=== PATIENT | male | born 2000 | race Caucasian/White ===

== ENCOUNTER 2021-05-04 19:06 | Emergency (ER) | payer BC ==
[2021-05-04] MEDS ORDERED: Ondansetron 4 MG/2 ML SDV IVPUSH ONE (20:41)
[2021-05-04] MEDS ORDERED: Sodium Chloride 0.9% 1,000 ML IV STA (20:41)
[2021-05-04] MEDS ORDERED: Sodium Chloride 0.9% 10 ML Syringe FLUSH PRN (20:41)
--- NOTE | 2021-05-04 21:18 | EDM.PDOC ---
<Alyson Pinto - Last Filed: 05/04/21 23:00> ED HPI GENERAL MEDICAL PROBLEM - General Chief Complaint: Abdominal Pain Stated Complaint: ABD PAIN Time Seen by Provider: 05/04/21 20:12 Source of Information: Reports: Patient, RN Notes Reviewed History Limitations: Reports: No Limitations - History of Present Illness INITIAL COMMENTS - FREE TEXT/NARRATIVE: Patient is a 21-year-old male presenting to the emergency department with complaints of right lower quadrant abdominal pain. Reports symptoms began this morning and have been consistent throughout the day. Pain is worse if he tries to stand upright and move around. He has felt nauseous but has had no vomiting. Denies diarrhea. Last bowel movement was yesterday. Denies any blood in his stools. He has no chronic medical conditions and has had no previous abdominal surgeries. Right Abdomen Pain Score (Numeric/FACES): 5 - Related Data Allergies Allergy/AdvReac Type Severity Reaction Status Date / Time No Known Allergies Allergy Verified 05/04/21 20:13 Home Meds: Home Meds . [No Known Home Meds] 05/04/21 [History] Past Medical History HEENT History: Reports: Otitis Media Respiratory History: Reports: Asthma, Croup - Infectious Disease History Infectious Disease History: Reports: None Social & Family History - Tobacco Use Tobacco Use Status *Q: Never Tobacco User - Caffeine Use Caffeine Use: Reports: Coffee, Energy Drinks, Soda, Tea - Recreational Drug Use Recreational Drug Use: No ED ROS GENERAL - Review of Systems Review Of Systems: See Below Constitutional: Reports: No Symptoms. Denies: Fever, Chills HEENT: Reports: No Symptoms Respiratory: Reports: No Symptoms Cardiovascular: Reports: No Symptoms Endocrine: Reports: No Symptoms GI/Abdominal: Reports: Abdominal Pain, Nausea. Denies: Diarrhea, Vomiting : Reports: No Symptoms Musculoskeletal: Reports: No Symptoms Skin: Reports: No Symptoms Neurological: Reports: No Symptoms Psychiatric: Reports: No Symptoms Hematologic/Lymphatic: Reports: No Symptoms Immunologic: Reports: No Symptoms ED EXAM, GI/ABD - Physical Exam Exam: See Below Exam Limited By: No Limitations General Appearance: Alert, WD/WN, No Apparent Distress Respiratory/Chest: No Respiratory Distress, Lungs Clear, Normal Breath Sounds, No Accessory Muscle Use, Chest Non-Tender Cardiovascular: Normal Peripheral Pulses, Regular Rate, Rhythm, No Edema, No Gallop, No JVD, No Murmur, No Rub GI/Abdominal Exam: Normal Bowel Sounds, Soft, No Organomegaly, No Distention, No Abnormal Bruit, No Mass, Pelvis Stable, Tender (Localized to right lower quadrant.). No: Guarding, Rigid, Rebound Neurological: Alert, Oriented, CN II-XII Intact, Normal Cognition, Normal Gait, Normal Reflexes, No Motor/Sensory Deficits Psychiatric: Normal Affect, Normal Mood Skin Exam: Warm, Dry, Intact, Normal Color, No Rash Course - Re-Assessments/Exams Free Text/Narrative Re-Assessment/Exam: Patient is a 21-year-old male presenting to the emergency department with complaints of right lower quadrant abdominal pain since this morning. Reports associated nausea but has had no vomiting. Denies diarrhea. Last bowel movement was yesterday. On exam, he does have localized right lower quadrant abdominal tenderness. Pain is worse with walking and he reports walking hunched over improves pain. Have ordered blood work, CT scan of the abdomen pelvis with contrast, and Covid testing. I will give IV fluids of normal saline 100 mils per hour and Zofran 4 mg IV. 05/04/21 22:22 Hematology is unremarkable. WBCs and CRP are normal. Urinalysis negative for infection. Results of CT scan are pending. Departure - Departure Disposition: Home, Self-Care 01 Clinical Impression: Abdominal pain - Discharge Information Referrals: PCP,None [Primary Care Provider] - Forms: ED Department Discharge Additional Instructions: Purchase [id number] MiraLAX and take this daily until you achieve regular bowel movements. If symptoms fail to improve over the next few days or you experience any new or worsening symptoms of concern, these follow-up in the clinic or return to ER as needed. <Sulaiman Butt - Last Filed: 05/04/21 23:41> Course - Vital Signs Last Recorded V/S: Last Vital Signs Temp 37.1 C 05/04/21 20:10 Pulse 81 05/04/21 20:10 Resp 20 05/04/21 20:10 BP 127/78 05/04/21 20:10 Pulse Ox 98 05/04/21 20:10 - Orders/Labs/Meds Orders: Active Orders 24 hr Category Date Time Status Peripheral IV Care [RC] . DIRECTED Care 05/04/21 20:41 Active Abdomen Pelvis w Cont [CT] Stat Exams 05/04/21 20:41 Taken Sodium Chloride 0.9% [Normal Saline] 1,000 ml Med 05/04/21 20:41 Active IV NOW Sodium Chloride 0.9% [Saline Flush] Med 05/04/21 20:41 Active 10 ml FLUSH ASDIRECTED PRN Peripheral IV Insertion Adult [OM.PC] Stat Oth 05/04/21 20:41 Ordered Medication Orders Sodium Chloride (Normal Saline) 1,000 mls @ 150 mls/hr IV NOW STA Stop: 05/05/21 03:20 Last Admin: 05/04/21 20:54 Dose: 150 mls/hr Documented by: KITA Sodium Chloride (Sodium Chloride 0.9% 10 Ml Syringe) 10 ml FLUSH ASDIRECTED PRN PRN Reason: Keep Vein Open Last Admin: 05/04/21 20:54 Dose: 10 ml Documented by: KITA Labs: Laboratory Tests 05/04/21 05/04/21 05/04/21 Range/Units 20:50 20:50 20:51 WBC 5.74 (4.23-9.07) K/mm3 RBC 5.24 (4.63-6.08) M/mm3 Hgb 16.0 (13.7-17.5) gm/dl Hct 46.5 (40.1-51.0) % MCV 88.7 (79.0-92.2) fl MCH 30.5 (25.7-32.2) pg MCHC 34.4 (32.2-35.5) g/dl RDW Std Deviation 42.6 (35.1-43.9) fL Plt Count 270 (163-337) K/mm3 MPV 9.5 (9.4-12.3) fl Neut % (Auto) 68.2 H (34.0-67.9) % Lymph % (Auto) 23.9 (21.8-53.1) % [place] % (Auto) 6.8 (5.3-12.2) % Eos % (Auto) 0.7 L (0.8-7.0) Baso % (Auto) 0.2 (0.1-1.2) % Neut # (Auto) 3.92 (1.78-5.38) K/mm3 Lymph # (Auto) 1.37 (1.32-3.57) K/mm3 [place] # (Auto) 0.39 (0.30-0.82) K/mm3 Eos # (Auto) 0.04 (0.04-0.54) K/mm3 Baso # (Auto) 0.01 (0.01-0.08) K/mm3 Sodium 137 (136-145) mEq/L Potassium 3.9 (3.5-5.1) mEq/L Chloride 103 (98-107) mEq/L Carbon Dioxide 27 (21-32) mEq/L Anion Gap 10.9 (5-15) BUN 14 (7-18) mg/dL Creatinine 1.0 (0.7-1.3) mg/dL Est Cr Clr Drug Dosing 121.67 mL/min Estimated GFR (MDRD) > 60 (>60) mL/min BUN/Creatinine Ratio 14.0 (14-18) Glucose 95 (70-99) mg/dL Calcium 9.2 (8.5-10.1) mg/dL Total Bilirubin 0.6 (0.2-1.0) mg/dL AST 14 L (15-37) U/L ALT 22 (16-63) U/L Alkaline Phosphatase 76 (46-116) U/L C-Reactive Protein <0.2 (<1.0) mg/dL Total Protein 7.5 (6.4-8.2) g/dl Albumin 4.6 (3.4-5.0) g/dl Globulin 2.9 gm/dL Albumin/Globulin Ratio 1.6 (1-2) Urine Color Yellow (Yellow) Urine Appearance Clear (Clear) Urine pH 6.5 (5.0-8.0) Ur Specific [place] 1.015 (1.005-1.030) Urine Protein Negative (Negative) Urine Glucose (UA) Negative (Negative) Urine Ketones Negative (Negative) Urine Occult Blood Trace-intact H (Negative) Urine Nitrite Negative (Negative) Urine Bilirubin Negative (Negative) Urine Urobilinogen 0.2 (0.2-1.0) Ur Leukocyte Esterase Trace H (Negative) Urine RBC 0-5 (0-5) /hpf Urine WBC 0-5 (0-5) /hpf Ur Squamous Epith Cells Not seen (0-5) /hpf Urine Bacteria Occasional (FEW) /hpf Urine Mucus Not seen (FEW) /hpf SARS-CoV-2 RNA (KONSTANTIN) (NEGATIVE) 05/04/21 Range/Units 22:19 WBC (4.23-9.07) K/mm3 RBC (4.63-6.08) M/mm3 Hgb (13.7-17.5) gm/dl Hct (40.1-51.0) % MCV (79.0-92.2) fl MCH (25.7-32.2) pg MCHC (32.2-35.5) g/dl RDW Std Deviation (35.1-43.9) fL Plt Count (163-337) K/mm3 MPV (9.4-12.3) fl Neut % (Auto) (34.0-67.9) % Lymph % (Auto) (21.8-53.1) % [place] % (Auto) (5.3-12.2) % Eos % (Auto) (0.8-7.0) Baso % (Auto) (0.1-1.2) % Neut # (Auto) (1.78-5.38) K/mm3 Lymph # (Auto) (1.32-3.57) K/mm3 [place] # (Auto) (0.30-0.82) K/mm3 Eos # (Auto) (0.04-0.54) K/mm3 Baso # (Auto) (0.01-0.08) K/mm3 Sodium (136-145) mEq/L Potassium (3.5-5.1) mEq/L Chloride (98-107) mEq/L Carbon Dioxide (21-32) mEq/L Anion Gap (5-15) BUN (7-18) mg/dL Creatinine (0.7-1.3) mg/dL Est Cr Clr Drug Dosing mL/min Estimated GFR (MDRD) (>60) mL/min BUN/Creatinine Ratio (14-18) Glucose (70-99) mg/dL Calcium (8.5-10.1) mg/dL Total Bilirubin (0.2-1.0) mg/dL AST (15-37) U/L ALT (16-63) U/L Alkaline Phosphatase (46-116) U/L C-Reactive Protein (<1.0) mg/dL Total Protein (6.4-8.2) g/dl Albumin (3.4-5.0) g/dl Globulin gm/dL Albumin/Globulin Ratio (1-2) Urine Color (Yellow) Urine Appearance (Clear) Urine pH (5.0-8.0) Ur Specific [place] (1.005-1.030) Urine Protein (Negative) Urine Glucose (UA) (Negative) Urine Ketones (Negative) Urine Occult Blood (Negative) Urine Nitrite (Negative) Urine Bilirubin (Negative) Urine Urobilinogen (0.2-1.0) Ur Leukocyte Esterase (Negative) Urine RBC (0-5) /hpf Urine WBC (0-5) /hpf Ur Squamous Epith Cells (0-5) /hpf Urine Bacteria (FEW) /hpf Urine Mucus (FEW) /hpf SARS-CoV-2 RNA (KONSTANTIN) Negative (NEGATIVE) Meds: Medications Generic Name Dose Route Start Last Admin Trade Name Freq PRN Reason Stop Dose Admin Sodium Chloride 1,000 mls @ 150 mls/hr 05/04/21 20:41 05/04/21 20:54 Normal Saline IV 05/05/21 03:20 150 mls/hr NOW STA Administration Sodium Chloride 10 ml 05/04/21 20:41 05/04/21 20:54 Sodium Chloride 0.9% 10 Ml Syringe FLUSH 10 ml ASDIRECTED PRN Administration Keep Vein Open Discontinued Medications Generic Name Dose Route Start Last Admin Trade Name Freq PRN Reason Stop Dose Admin Diatrizoate Meglum/Diatrizoate Sod 120 ml 05/04/21 22:24 05/04/21 22:25 Diatrizoate Meglumine/Diatrizoate Sodium 37% 120 Ml Bottle PO 05/04/21 22:25 90 ml ONETIME ONE Administration Iopamidol 100 ml 05/04/21 22:24 05/04/21 22:26 Iopamidol 612 Mg/Ml 100 Ml Bottle IVPUSH 05/04/21 22:25 100 ml ONETIME ONE Administration Ondansetron HCl 4 mg 05/04/21 20:41 05/04/21 20:54 Ondansetron 4 Mg/2 Ml Sdv IVPUSH 05/04/21 20:42 4 mg ONETIME ONE Administration - Re-Assessments/Exams Free Text/Narrative Re-Assessment/Exam: 05/04/21 23:41 Assumed care at routine shift change. Evaluated patient at bedside. Reviewed labs and CT scan. Patient had minimal abdominal tenderness on exam. Laboratory studies were unremarkable. CT scan showed no acute abnormality such as appendicitis, kidney stone or other acute findings. At this point, I think patient is safe for discharge. I did give appropriate appendicitis return precautions. All questions were addressed and answered. Patient agrees with plan of care. Departure - Departure Time of Disposition: 23:41 Sepsis Event Note (ED) - Focused Exam Vital Signs: Vital Signs Temp Pulse Resp BP Pulse Ox 05/04/21 20:10 37.1 C 81 20 127/78 98
[2021-05-04] MEDS ORDERED: Diatrizoate Meglumine/Diatrizoate Sodium 37% 120 ML Bottle PO ONE (22:24)
[2021-05-04] MEDS ORDERED: Iopamidol 612 MG/ML 100 ML Bottle IVPUSH ONE (22:24)
--- NOTE | 2021-05-05 07:26 | CT ---
CT abdomen and pelvis Technique: Multiple axial sections were obtained from above the dome of the diaphragm inferiorly through the pubic symphysis. Intravenous and oral contrast was utilized. Delayed images were also obtained through the bladder. Reconstructed coronal and sagittal images were also obtained. Comparison: No prior abdominal or pelvic imaging is available. Findings: Visualized lung bases show nothing acute. Liver contains no focal parenchymal abnormality. Spleen size is normal. Adrenal glands show no nodule. Pancreas shows no abnormality. Gallbladder contains no calcified gallstones. Kidneys show symmetric contrast enhancement. No hydronephrosis or mass is seen. Abdominal aorta shows no aneurysm. No retroperitoneal adenopathy or mesenteric abnormalities are seen. No pelvic mass or adenopathy is seen. Delayed images show contrast within the distal ureters and within the bladder. Appendix is seen which is normal in size. No bowel dilatation is seen. No free fluid or inflammatory change is seen. Bone window settings were reviewed. Spondylolytic change is noted on the left side at L5-S1. There is mild spondylolisthesis seen of L5-S1 measuring 5 mm. Disc space narrowing is also noted at L5-S1. Impression: 1. 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 2. No additional abnormality is appreciated on CT study of the abdomen and pelvis. Diagnostic code #2 I agree with preliminary report from [facility], finalized on 05/05/21, 12:30 AM [employer], code 2
== END 2021-05-04 23:54 | disposition home or self-care (01) ==
LOC: JD.ED 19:06
DX: R10.31 Right lower quadrant pain (principal); Z20.822 Contact with and (suspected) exposure to COVID-19; J45.909 Unspecified asthma, uncomplicated
CPT/HCPCS: 36415; 74177; 74177-26; 80053; 81001; 85025; 86140; 96374; 99284; 99284-25; J2405; J7030; Q9963; Q9967; U0002